=== PATIENT | female | born 1985 | race Caucasian/White ===

== ENCOUNTER 2020-12-05 15:11 | Outpatient (REF) | payer OTHER, SELFPAY ==
[2020-12-05 16:41] LABS: MANUAL DIFF FLAG NO
[2020-12-05 16:47] LABS: Basophils Percent Auto 0.4 % (0-2); Eosinophils Absolute Auto 0.1 X10*3/uL (0.0-0.4); Eosinophils Percent Auto 0.7 % (0-4); Hematocrit 34.8 % (37-47); Imm Gran Abs Auto 0.02 X10*3/uL (0.00-0.03); Imm Gran Pct Auto 0.3 % (0.0-0.4); Lymphocytes Absolute Auto 1.2 X10*3/uL (1.2-4.9); Lymphocytes Percent Auto 16.3 % (20-40); Mean Corpuscular HGB Conc 31.6 g/dl (31.0-35.0); Mean Corpuscular Hemoglobin 25.2 pg (27.0-33.0); Mean Corpuscular Volume 79.6 fL (80-98); Mean Platelet Volume 9.4 fL (9.4-12.3); Monocytes Absolute Auto 0.6 X10*3/uL (0.1-1.2); Monocytes Percent Auto 7.5 % (2-11); Neutrophils Absolute Auto 5.5 X10*3/uL (2.0-8.3); Neutrophils Percent Auto 74.8 % (45-73); Platelet Count 393 X10*3/uL (160-400); Red Blood Count 4.37 X10*6/uL (4.20-5.50); Red Cell Distribution Width 15.9 % (11.0-16.0); White Blood Count 7.4 X10*3/uL (4.8-10.8)
[2020-12-05 17:07] LABS: Anion Gap 13 (12-20); Blood Urea Nitrogen 12 mg/dL (9-16); Calcium 9.3 mg/dL (8.4-10.2); Carbon Dioxide 24 mmol/L (22-29); Chloride 104 mmol/L (96-108); Estimated Glomerular Filt Rate > 60; Glucose Random 89 mg/dL (60-115); Potassium 4.8 mmol/L (3.3-5.1); Sodium 136 mmol/L (135-145)
[2020-12-05 18:01] LABS: Erythrocyte Sedimentation Rate 46 MM/HR (0-20)
[2020-12-07 17:23] LABS: IgA 170 mg/dL (47-310); IgG 1636 mg/dL (600-1640); IgM 58 mg/dL (50-300)
== END 2020-12-05 15:12 | disposition home or self-care (01) ==
LOC: HO.LAB 15:11
PROVIDERS: PCP Internal Medicine; Visit Provider Hospitalist
DX: J98.4 Other disorders of lung (principal); G71.09 Other specified muscular dystrophies; J45.909 Unspecified asthma, uncomplicated; J96.10 Chronic respiratory failure, unspecified whether with hypoxia or hypercapnia; J96.11 Chronic respiratory failure with hypoxia; Z88.0 Allergy status to penicillin; Z79.899 Other long term (current) drug therapy
CPT/HCPCS: 36415; 80048; 82784; 82785; 85025; 85652; 86003; 99212

== ENCOUNTER 2021-01-16 14:28 | Outpatient (REF) | payer OTHER, SELFPAY ==
--- NOTE | ~2021-01-16 | XR_ITS ---
EXAMINATION: XR CHEST CLINICAL INFORMATION: Chronic respiratory failure. COMPARISON: None TECHNIQUE: 2 views of the chest were obtained. FINDINGS: Large body habitus. Elevated diaphragms due to the large body habitus. Linear atelectasis at lung bases. Mild prominence of central hilar pulmonary vessels accentuated by the low inspiratory effort. The lowest No significant pulmonary vascular congestion. No pleural effusion or pneumothorax. XR/XR chest 2V IMPRESSION: Bibasilar atelectasis at lung bases due to elevated diaphragms from large body habitus.
[2021-01-16 14:51] VITALS: O2SAT 98
== END 2021-01-16 14:29 | disposition home or self-care (01) ==
LOC: HO.LAB 14:28
PROVIDERS: PCP Internal Medicine; Visit Provider Hospitalist
DX: J96.11 Chronic respiratory failure with hypoxia (principal); J98.4 Other disorders of lung; G71.00 Muscular dystrophy, unspecified; G71.09 Other specified muscular dystrophies; J45.40 Moderate persistent asthma, uncomplicated; J40 Bronchitis, not specified as acute or chronic
CPT/HCPCS: 36600; 71046; 99212

== ENCOUNTER 2021-02-14 14:50 | Outpatient (REF) | payer OTHER, SELFPAY ==
[2021-02-14 17:10] LABS: MANUAL DIFF FLAG NO
[2021-02-14 17:30] LABS: Basophils Percent Auto 0.5 % (0-2); Eosinophils Percent Auto 0.5 % (0-4); Hematocrit 35.4 % (37-47); Imm Gran Abs Auto 0.03 X10*3/uL (0.00-0.03); Imm Gran Pct Auto 0.4 % (0.0-0.4); Lymphocytes Absolute Auto 1.4 X10*3/uL (1.2-4.9); Lymphocytes Percent Auto 16.9 % (20-40); Mean Corpuscular HGB Conc 31.1 g/dl (31.0-35.0); Mean Corpuscular Hemoglobin 24.8 pg (27.0-33.0); Mean Corpuscular Volume 79.7 fL (80-98); Mean Platelet Volume 9.7 fL (9.4-12.3); Monocytes Absolute Auto 0.5 X10*3/uL (0.1-1.2); Monocytes Percent Auto 6.4 % (2-11); Neutrophils Absolute Auto 6.4 X10*3/uL (2.0-8.3); Neutrophils Percent Auto 75.3 % (45-73); Platelet Count 425 X10*3/uL (160-400); Red Blood Count 4.44 X10*6/uL (4.20-5.50); Red Cell Distribution Width 16.2 % (11.0-16.0); White Blood Count 8.5 X10*3/uL (4.8-10.8)
[2021-02-14 17:49] LABS: Iron 28 mcg/dL (30-160); Percent Iron Saturation 6 % (15-50); Total Iron Binding Capacity 480 mcg/dL (228-428); Unsaturated Iron Binding 452 ug/dL
[2021-02-14 18:10] LABS: Ferritin 15 ng/mL (10-122)
== END 2021-02-14 14:51 | disposition home or self-care (01) ==
LOC: HO.LAB 14:50
PROVIDERS: PCP Internal Medicine; Visit Provider Hospitalist
DX: J45.909 Unspecified asthma, uncomplicated (principal); G71.09 Other specified muscular dystrophies; J98.4 Other disorders of lung; G71.00 Muscular dystrophy, unspecified; K21.9 Gastro-esophageal reflux disease without esophagitis; J96.10 Chronic respiratory failure, unspecified whether with hypoxia or hypercapnia; D50.9 Iron deficiency anemia, unspecified; J45.40 Moderate persistent asthma, uncomplicated; J96.11 Chronic respiratory failure with hypoxia
CPT/HCPCS: 36415; 82728; 83540; 85025; 99212

== ENCOUNTER 2021-03-28 11:54 | Outpatient (REF) | payer OTHER, SELFPAY ==
--- NOTE | ~2021-03-28 | XR_ITS ---
EXAMINATION: XR CHEST CLINICAL INFORMATION: Bronchitis COMPARISON: Previous chest x-ray December 2020 TECHNIQUE: 2 views of the chest were obtained. FINDINGS: The lung volumes are very low. The cardiac and mediastinal contours are stable. There may be subsegmental atelectasis at the left lung base. There is crowding of the central bronchovascular markings probably related to low lung volumes. The lungs are otherwise clear. There is no pleural effusion or pneumothorax. No acute bone abnormality is seen. XR/XR chest 2V IMPRESSION: Very low lung volumes. Crowding of the central bronchovascular markings probably related to low lung volumes and subsegmental atelectasis at the left lung base.
== END 2021-03-28 11:55 | disposition home or self-care (01) ==
LOC: HO.XRAY 11:54
PROVIDERS: PCP Family Medicine; Visit Provider Hospitalist
DX: J96.11 Chronic respiratory failure with hypoxia (principal); J45.40 Moderate persistent asthma, uncomplicated; J40 Bronchitis, not specified as acute or chronic; G71.09 Other specified muscular dystrophies; J98.4 Other disorders of lung; G71.00 Muscular dystrophy, unspecified
CPT/HCPCS: 71046; 99212

== ENCOUNTER → 2021-05-09 14:52 | Outpatient (BNVA) | payer OTHER, SELFPAY | PROVIDERS: PCP Internal Medicine; Visit Provider Hospitalist | DX: J96.11 Chronic respiratory failure with hypoxia (principal); J98.4 Other disorders of lung; J45.40 Moderate persistent asthma, uncomplicated; J40 Bronchitis, not specified as acute or chronic; G71.09 Other specified muscular dystrophies | CPT/HCPCS: 90686; 99212 ==

== ENCOUNTER → 2021-06-03 13:11 | Outpatient (BNVA) | payer OTHER, SELFPAY | PROVIDERS: PCP Internal Medicine; Referring Provider Hospitalist; Visit Provider Dietitian, Registered | DX: E66.9 Obesity, unspecified (principal) | CPT/HCPCS: 97802 ==

== ENCOUNTER → 2021-07-07 14:10 | Outpatient (BNVA) | payer OTHER, SELFPAY | PROVIDERS: PCP Internal Medicine; Visit Provider Dietitian, Registered | DX: E66.9 Obesity, unspecified (principal) | CPT/HCPCS: 97803 ==

== ENCOUNTER 2021-08-01 15:32 | Outpatient (REF) | payer OTHER, SELFPAY ==
[2021-08-01 16:27] LABS: MANUAL DIFF FLAG NO
[2021-08-01 16:32] LABS: Venous Blood Gas Refer to POC result
[2021-08-01 16:33] LABS: Basophils Percent Auto 0.3 % (0-2); Eosinophils Percent Auto 0.3 % (0-4); Hematocrit 41.6 % (37.0-47.0); Hemoglobin 13.3 g/dl (12.0-16.0); Imm Gran Abs Auto 0.04 X10*3/uL (0.00-0.03); Imm Gran Pct Auto 0.4 % (0.0-0.4); Lymphocytes Absolute Auto 1.3 X10*3/uL (1.2-4.9); Lymphocytes Percent Auto 12.9 % (20-40); Mean Corpuscular Hemoglobin 24.8 pg (27.0-33.0); Mean Corpuscular Volume 77.6 fL (80.0-98.0); Mean Platelet Volume 10.2 fL (9.4-12.3); Monocytes Absolute Auto 0.7 X10*3/uL (0.1-1.2); Monocytes Percent Auto 7.1 % (2-11); Neutrophils Absolute Auto 8.1 x10*3/uL (2.0-8.3); Platelet Count 370 X10*3/uL (160-400); Red Blood Count 5.36 X10*6/uL (4.20-5.50); Red Cell Distribution Width 17.9 % (11.0-16.0); White Blood Count 10.2 X10*3/uL (4.8-10.8)
[2021-08-01 16:36] LABS: VBG Base Excess -2.4 mmol/L; VBG HCO3 21 mmol/L (22-26); VBG pCO2 35 mmHg; VBG pH 7.39 (7.32-7.43); VBG pO2 54 mmHg
[2021-08-02 08:42] LABS: SARS COV2 IgG Negative (Negative)
== END 2021-08-01 15:33 | disposition home or self-care (01) ==
LOC: HO.LAB 15:32
PROVIDERS: PCP Internal Medicine; Visit Provider Hospitalist
DX: J96.10 Chronic respiratory failure, unspecified whether with hypoxia or hypercapnia (principal); M79.89 Other specified soft tissue disorders; J96.11 Chronic respiratory failure with hypoxia; J98.4 Other disorders of lung; G71.00 Muscular dystrophy, unspecified; G71.09 Other specified muscular dystrophies; J45.40 Moderate persistent asthma, uncomplicated; J40 Bronchitis, not specified as acute or chronic; Z20.822 Contact with and (suspected) exposure to COVID-19
CPT/HCPCS: 36415; 82803; 85025; 86769; 99212

== ENCOUNTER 2021-09-05 16:30 | Outpatient (REF) | payer OTHER, SELFPAY ==
[2021-09-05 16:53] LABS: MANUAL DIFF FLAG NO
[2021-09-05 17:16] LABS: Basophils Percent Auto 0.3 % (0-2); Eosinophils Absolute Auto 0.1 X10*3/uL (0.0-0.4); Eosinophils Percent Auto 0.8 % (0-4); Hematocrit 36.4 % (37.0-47.0); Hemoglobin 11.1 g/dl (12.0-16.0); Imm Gran Abs Auto 0.04 X10*3/uL (0.00-0.03); Imm Gran Pct Auto 0.4 % (0.0-0.4); Lymphocytes Absolute Auto 1.3 X10*3/uL (1.2-4.9); Lymphocytes Percent Auto 14.7 % (20-40); Mean Corpuscular HGB Conc 30.5 g/dl (31.0-35.0); Mean Corpuscular Hemoglobin 25.1 pg (27.0-33.0); Mean Corpuscular Volume 82.2 fL (80.0-98.0); Mean Platelet Volume 9.3 fL (9.4-12.3); Monocytes Absolute Auto 0.7 X10*3/uL (0.1-1.2); Monocytes Percent Auto 7.5 % (2-11); Neutrophils Percent Auto 76.3 % (45-73); Platelet Count 411 X10*3/uL (160-400); Red Blood Count 4.43 X10*6/uL (4.20-5.50); Red Cell Distribution Width 17.6 % (11.0-16.0); White Blood Count 9.1 X10*3/uL (4.8-10.8)
[2021-09-05 17:27] LABS: D Dimer High Sensitivity 1172 NG/ML
[2021-09-05 17:50] LABS: Alanine Aminotransferase 52 U/L (0-31); Albumin Level 4.2 g/dL (3.5-5.0); Alkaline Phosphatase 91 U/L (39-117); Anion Gap 13 (12-20); Aspartate Amino Transferase 26 U/L (5-31); Bilirubin Direct 0.2 mg/dL (0.0-0.5); Bilirubin Total 0.5 mg/dL (0.0-1.0); Blood Urea Nitrogen 13 mg/dL (9-16); Calcium 9.5 mg/dL (8.4-10.2); Carbon Dioxide 25 mmol/L (22-29); Chloride 104 mmol/L (96-108); Estimated Glomerular Filt Rate > 60; Glucose Random 118 mg/dL (60-115); Potassium 4.4 mmol/L (3.3-5.1); Sodium 138 mmol/L (135-145); Total Protein 7.6 g/dL (6.5-8.0)
[2021-09-05 17:55] LABS: Troponin-I High Sensitivity 6.1 ng/L (<3.5-17.0)
[2021-09-05 18:02] LABS: Erythrocyte Sedimentation Rate 53 MM/HR (0-20)
[2021-09-05 18:10] LABS: Ferritin 16 ng/mL (10-122)
== END 2021-09-05 16:31 | disposition home or self-care (01) ==
LOC: HO.LAB 16:30
PROVIDERS: PCP Internal Medicine; Visit Provider Hospitalist
DX: G71.09 Other specified muscular dystrophies (principal); J96.10 Chronic respiratory failure, unspecified whether with hypoxia or hypercapnia; R07.81 Pleurodynia
CPT/HCPCS: 36415; 80048; 80076; 82728; 84484; 85025; 85379; 85652

== ENCOUNTER 2021-09-05 20:25 | Emergency (ER) | payer OTHER, SELFPAY ==
--- NOTE | ~2021-09-05 | XR_ITS ---
EXAMINATION: XR CHEST CLINICAL INFORMATION: Shortness of breath COMPARISON: 03/28/2021 TECHNIQUE: Frontal view of the chest was obtained. FINDINGS: Lung volumes are low. Minimal bibasilar atelectasis. No pleural effusion or pneumothorax. The cardiomediastinal silhouette is unchanged. XR/XR chest 1V IMPRESSION: Very low lung volumes limit evaluation. Basilar atelectasis.
--- NOTE | ~2021-09-05 | CT_ITS ---
EXAMINATION: CT ANGIOGRAM OF THE CHEST WITH AND WITHOUT CONTRAST (CT PULMONARY ANGIOGRAM FOR PE) CLINICAL INFORMATION: Reason for Exam sob elevated d dimer COMPARISON: Chest radiograph 09/05/2021 TECHNIQUE: Prior to contrast administration, noncontrast localization images were obtained. Subsequently, multidetector volumetric imaging was performed from the thoracic inlet to below the diaphragms following the administration of 80 mL Omnipaque 350 intravenous contrast. No contrast reaction reported Sagittal, coronal, and MIP oblique sagittal reformatted images were obtained on the CT workstation, uploaded to PACS, and reviewed. This CT examination was performed using dose optimization techniques as appropriate, variously including the following: *Automated exposure control *Adjustment of mA and/or kV according to patient size (this includes techniques or standardized protocols for targeted exams where dose is matched to indication/reason for exam; i.e. extremities or head) *Use of iterative reconstruction technique Total exam dose-length product 470 mGy-cm FINDINGS: QUALITY OF STUDY/CONTRAST BOLUS: Satisfactory. PULMONARY ARTERIES: No central or segmental pulmonary emboli. THORACIC AORTA: No aneurysm or dissection. LUNG: No focal consolidation, nodules or masses. The central airways are patent. Bandlike atelectasis of the lung bases. Lung volumes are low. PLEURA: No pleural effusion or pneumothorax. MEDIASTINUM: Normal heart size. No pericardial effusion. No hilar or mediastinal lymphadenopathy. No evidence of septal bowing or right heart strain. CHEST WALL/AXILLA: No axillary or internal mammary lymphadenopathy. OSSEOUS STRUCTURES: No acute or suspicious osseous abnormality. UPPER ABDOMEN: Unremarkable. No reflux of contrast into the hepatic veins to suggest elevated right heart pressures. CT/CT angio chest PE protocol IMPRESSION: No pulmonary embolism. Low lung volumes with basilar atelectasis. VTE: negative
[2021-09-05 21:25] VITALS: BP 118/76; PULSE 85; RESP 18; TEMP 36.6; O2SAT 100; BMI 40.2
--- NOTE | 2021-09-06 00:02 | ED.SOB ---
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 complain of right-sided posterior chest pain since last night seen her hospitalist program director who did a D-dimer which was elevatedpatient complains of increased pain when he takes a deep breath no history of blood clots Related Data Home Medications Medication Instructions Recorded Confirmed albuterol sulfate mg INHALATION 12/05/20 12/05/20 albuterol sulfate 90 mcg/actuation 0 mcg INHALATION 12/05/20 12/05/20 aerosol inhaler amlodipine 10 mg tablet 10 mg PO DAILY 12/05/20 12/05/20 arformoterol 15 mcg/2 mL solution 1 INHALATION BID 12/05/20 12/05/20 for nebulization budesonide 0.5 mg/2 mL suspension mg INHALATION 12/05/20 12/05/20 for nebulization fluticasone propionate 50 spray INTRANASAL 12/05/20 12/05/20 mcg/actuation nasal spray,suspension hydrochlorothiazide 25 mg tablet 25 mg PO DAILY 12/05/20 12/05/20 levothyroxine 75 mcg tablet 75 mcg PO DAILY 12/05/20 12/05/20 lisinopril 20 mg tablet 20 mg PO DAILY 12/05/20 12/05/20 montelukast 10 mg tablet 10 mg PO DAILY 12/05/20 12/05/20 cetirizine 10 mg tablet 10 mg PO DAILY 02/14/21 vitamin B complex (Vitamins B 1 tab PO DAILY 02/14/21 Complex) ferrous sulfate 140 mg (45 mg 0 mg PO 08/01/21 iron) tablet,extended release (Slow Release Iron) Previous Rx's Medication Instructions Recorded inhalational spacing device #1 ea 12/05/20 (Aerochamber MV) revefenacin 175 mcg/3 mL solution 175 mcg (3 mL) INHALATION DAILY 30 12/05/20 for nebulization (Yupelri) Days #90 ml compress.stocking,knee,reg,lrg #2 ea 02/14/21 sodium chloride 3 % for 4 ml INHALATION BID 30 Days #240 ml 03/28/21 nebulization codeine 10 mg-guaifenesin 100 mg/5 5 ml PO Q8H PRN 10 Days #150 ml 07/01/21 mL oral liquid compr.stocking,thigh,short,lrg #2 ea 08/01/21 ibuprofen 600 mg tablet 600 mg PO Q6H PRN #20 tab 09/06/21 Allergies Allergy/AdvReac Type Severity Reaction Status Date / Time Penicillins Allergy Severe Rash Verified 08/01/21 15:36 Review of Systems Review of Systems: Yes all other systems are reviewed and are negative FOR[facility]LY [facility] Past Medical History Medical History Anemia Asthma Bronchitis Chronic respiratory failure Iron deficiency anemia Limb swelling 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 Oriented X3. No acute distress. obese wheelchair-bound Eyes: PERRLA, No Nystagmus ENT: Pharynx normal. Oral Mucosa moist Neck: Normal inspection. Neck supple. CVS: Normal heart rate and rhythm. Pulses normal. Respiratory: No respiratory distress. Equal air entry bilateral, no wheezing/rales/rhonchi Abdomen: Soft and nontender. Bowel sounds are present, no mass palpable, no CVA tenderness Skin: Skin warm and dry. Normal skin color. Normal skin turgor. Extremities: No lower extremity edema. No calf tenderness Neuro: Oriented X 3. diffuse muscle weakness involving upper extremities and lower extremities wheelchair-bound MDM - SOB/Dyspnea MDM Narrative Medical decision making narrative: patient's CTA chest negative for PE symptoms likely from to discharge patient home on ibuprofen patient saturating 100% on CPAP Lab Data Attestation: I reviewed the patient's lab results. Labs: Lab Results 09/06/21 Range/Units 00:20 PT 13.5 H (9.9-13.0) SEC INR 1.2 H (0.9-1.1) APTT 36.6 (24.1-38.0) SEC Discharge Plan Discharge Clinical Impression: Pleuritic chest pain Patient Disposition: Home, Self-Care Instructions: Pleurisy (ED) Additional Instructions: your CT scan is negative for blood clot ibuprofen for pain Prescriptions: New ibuprofen 600 mg tablet 600 mg PO Q6H PRN (Reason: pain) Qty: 20 0RF No Action codeine-guaifenesin 10-100 mg/5 mL liquid 5 ml PO Q8H PRN (Reason: cough) 10 Days Qty: 150 0RF fluticasone propionate 50 mcg/actuation spray,suspension intranasal 0RF levothyroxine 75 mcg tablet 75 mcg PO DAILY 0RF albuterol sulfate 90 mcg/actuation HFA aerosol inhaler 0 mcg inhalation 0RF montelukast 10 mg tablet 10 mg PO DAILY 0RF budesonide 0.5 mg/2 mL suspension for nebulization inhalation 0RF amlodipine 10 mg tablet 10 mg PO DAILY 0RF lisinopril 20 mg tablet 20 mg PO DAILY 0RF albuterol sulfate 2.5 mg /3 mL (0.083 %) solution for nebulization inhalation 0RF Brovana 15 mcg/2 mL solution for nebulization 1 inhalation BID 0RF hydrochlorothiazide 25 mg tablet 25 mg PO DAILY 0RF Yupelri 175 mcg/3 mL solution for nebulization 175 mcg inhalation DAILY 30 Days Qty: 90 11RF (DME) Aerochamber MV Spacer See Rx Instructions .ROUTE .MEDSUPPLY Qty: 1 0RF Rx Instructions: As directed vitamin B complex [Vitamins B Complex] Tablet 1 tab PO DAILY 0RF cetirizine 10 mg tablet 10 mg PO DAILY 0RF (DME) compress.stocking,knee,reg,lrg Misc See Rx Instructions .Route Qty: 2 0RF Rx Instructions: As directed 15-20 cm sodium chloride 3 % solution for nebulization 4 ml inhalation BID 30 Days Qty: 240 11RF Slow Release Iron 140 mg (45 mg iron) tablet extended release 0 mg PO 0RF (DME) compr.stocking,thigh,short,lrg Misc See Rx Instructions .Route Qty: 2 0RF Rx Instructions: 15-20 cm
[2021-09-06 00:35] LABS: Partial Thromboplastin Time 36.6 SEC (24.1-38.0)
[2021-09-06 01:29] LABS: INTERNATIONAL NORM RATIO 1.2 (0.9-1.1); Prothrombin Time 13.5 SEC (9.9-13.0)
[2021-09-06] MEDS: iohexoL 350 MG/ML 100 ML INFUS..BTL IV (02:16)
[2021-09-06] MEDS: Ibuprofen 600 MG TABLET PO (03:47)
--- NOTE | 2021-09-06 03:48 | PC.NURSE ---
PT TO BE DC'D HOME. REQUESTING IBUPROFEN PRIOR TO DC. ORDER OBTAINED. PT MEDICATED ORDERED. UNABLE TO SCAN PT'S WRIST BAND, WOULD NOT SCAN. BAND VERIFIED BY 2 RN'S
--- NOTE | 2021-09-06 03:58 | PC.NURSE ---
CT SCAN NEGATIVE FOR PE. SAW PT AND EXPLAINED THIS. PT GIVEN IBUPROFEN FOR PLEURITIC PAIN AND D/C INTRUCTIONS. IV PRN ADAPTER REMOVED AND PT D/C'D HOME WITH MOTHER.
--- NOTE | 2021-09-06 04:01 | PC.NURSE ---
MD UPDATED PATIENT ON PLAN OF CARE. PT AWAKE, ALERT AND ORIENTED X 3, BASELINE. SKIN WARM AND DRY RESP UNLABORED. NO ACUTE DISTRESS NOTED. FAMILY MEMBER WITH PATIENT. AGREEABLE TO DC HOME. MEDICATED PRIOR TO DC. HOME WITH FAMILY.
== END 2021-09-06 04:03 | disposition home or self-care (01) ==
PROVIDERS: Emergency Provider Internal Medicine; PCP Internal Medicine
DX: R07.81 Pleurodynia (principal)
CPT/HCPCS: 36415; 71045; 71275; 85610; 85730; 99283; 99284; Q9967

== ENCOUNTER → 2021-09-25 13:10 | Outpatient (BNVA) | payer OTHER, SELFPAY | PROVIDERS: PCP Internal Medicine; Visit Provider Hospitalist | DX: J98.4 Other disorders of lung (principal); J45.40 Moderate persistent asthma, uncomplicated; J96.11 Chronic respiratory failure with hypoxia; G71.00 Muscular dystrophy, unspecified; G71.09 Other specified muscular dystrophies | CPT/HCPCS: 99212 ==

== ENCOUNTER → 2021-10-14 13:11 | Outpatient (BNVA) | payer OTHER, SELFPAY | PROVIDERS: PCP Internal Medicine; Visit Provider Dietitian, Registered | DX: E66.9 Obesity, unspecified (principal); Z71.3 Dietary counseling and surveillance | CPT/HCPCS: 97803 ==

== ENCOUNTER → 2021-10-31 15:19 | Outpatient (BNVA) | payer OTHER, SELFPAY | PROVIDERS: PCP Internal Medicine; Visit Provider Hospitalist | DX: J98.4 Other disorders of lung (principal); J45.40 Moderate persistent asthma, uncomplicated; J96.11 Chronic respiratory failure with hypoxia; G71.09 Other specified muscular dystrophies | CPT/HCPCS: 99212 ==

== ENCOUNTER → 2021-12-19 10:27 | Outpatient (BNVA) | payer OTHER, SELFPAY | PROVIDERS: PCP Internal Medicine; Visit Provider Dietitian, Registered | DX: E66.9 Obesity, unspecified (principal); Z71.3 Dietary counseling and surveillance | CPT/HCPCS: 97803 ==

== ENCOUNTER 2021-12-25 14:54 | Outpatient (REF) | payer OTHER, SELFPAY ==
[2021-12-25 15:23] LABS: MANUAL DIFF FLAG NO
[2021-12-25 15:29] LABS: Basophils Percent Auto 0.3 % (0-2); Eosinophils Absolute Auto 0.1 X10*3/uL (0.0-0.4); Eosinophils Percent Auto 0.5 % (0-4); Hematocrit 35.3 % (37.0-47.0); Hemoglobin 11.2 g/dl (12.0-16.0); Imm Gran Abs Auto 0.03 X10*3/uL (0.00-0.03); Imm Gran Pct Auto 0.3 % (0.0-0.4); Lymphocytes Absolute Auto 1.6 X10*3/uL (1.2-4.9); Lymphocytes Percent Auto 16.6 % (20-40); Mean Corpuscular HGB Conc 31.7 g/dl (31.0-35.0); Mean Corpuscular Hemoglobin 25.5 pg (27.0-33.0); Mean Corpuscular Volume 80.4 fL (80.0-98.0); Mean Platelet Volume 9.8 fL (9.4-12.3); Monocytes Absolute Auto 0.8 X10*3/uL (0.1-1.2); Monocytes Percent Auto 8.6 % (2-11); Neutrophils Percent Auto 73.7 % (45-73); Platelet Count 367 X10*3/uL (160-400); Red Blood Count 4.39 X10*6/uL (4.20-5.50); White Blood Count 9.5 X10*3/uL (4.8-10.8)
[2021-12-25 15:31] LABS: Venous Blood Gas Refer to POC result
[2021-12-25 15:41] LABS: VBG pH 7.43 (7.32-7.43)
[2021-12-25 15:42] LABS: VBG Base Excess 0.2 mmol/L; VBG HCO3 23 mmol/L (22-26); VBG pCO2 35 mmHg; VBG pO2 72 mmHg
[2021-12-25 15:45] LABS: Alanine Aminotransferase 28 U/L (0-31); Albumin Level 4.2 g/dL (3.5-5.0); Alkaline Phosphatase 73 U/L (39-117); Anion Gap 14 (12-20); Aspartate Amino Transferase 22 U/L (5-31); Bilirubin Direct 0.2 mg/dL (0.0-0.5); Bilirubin Total 0.4 mg/dL (0.0-1.0); Blood Urea Nitrogen 23 mg/dL (9-16); Calcium 9.4 mg/dL (8.4-10.2); Carbon Dioxide 22 mmol/L (22-29); Chloride 101 mmol/L (96-108); Estimated Glomerular Filt Rate > 60; Glucose Random 93 mg/dL (60-115); Iron 33 mcg/dL (30-160); Percent Iron Saturation 7 % (15-50); Potassium 4.8 mmol/L (3.3-5.1); Sodium 132 mmol/L (135-145); Total Iron Binding Capacity 455 mcg/dL (228-428); Total Protein 7.7 g/dL (6.5-8.0); Unsaturated Iron Binding 422 ug/dL
[2021-12-25 15:51] LABS: B Type Natriuretic Peptide < 10 pg/mL (<100)
[2021-12-25 16:05] LABS: Ferritin 27 ng/mL (10-122)
[2021-12-25 16:09] LABS: Erythrocyte Sedimentation Rate 60 MM/HR (0-20)
== END 2021-12-25 14:55 | disposition home or self-care (01) ==
LOC: HO.LAB 14:54
PROVIDERS: Visit Provider Hospitalist
DX: J98.4 Other disorders of lung (principal); J45.909 Unspecified asthma, uncomplicated; J96.11 Chronic respiratory failure with hypoxia; J45.40 Moderate persistent asthma, uncomplicated; G71.09 Other specified muscular dystrophies; M79.89 Other specified soft tissue disorders; R60.1 Generalized edema; Z99.81 Dependence on supplemental oxygen
CPT/HCPCS: 36415; 80048; 80076; 82728; 82803; 83540; 83880; 85025; 85652; 99212

== ENCOUNTER → 2022-01-30 14:09 | Outpatient (BNVA) | payer OTHER, SELFPAY | PROVIDERS: PCP Internal Medicine; Visit Provider Hospitalist | DX: J96.11 Chronic respiratory failure with hypoxia (principal); R60.1 Generalized edema; M79.89 Other specified soft tissue disorders; J98.4 Other disorders of lung; G71.00 Muscular dystrophy, unspecified; G71.09 Other specified muscular dystrophies; J45.40 Moderate persistent asthma, uncomplicated; M62.838 Other muscle spasm | CPT/HCPCS: 99212 ==

== ENCOUNTER 2022-02-13 16:06 | Outpatient (REF) | payer OTHER, SELFPAY ==
[2022-02-13 17:33] LABS: ABG Refer to POC result
[2022-02-13 17:36] LABS: ABG Base Excess 0.1 mmol/L; ABG HCO3 24 mmol/L (22-26); ABG pCO2 38 mmHg (32-45); ABG pH 7.41 (7.35-7.45); ABG pO2 90 mmHg (83-108)
== END 2022-02-13 16:07 | disposition home or self-care (01) ==
LOC: HO.LAB 16:06
PROVIDERS: Visit Provider Hospitalist
DX: J96.10 Chronic respiratory failure, unspecified whether with hypoxia or hypercapnia (principal)
CPT/HCPCS: 82803